=== PATIENT | male | born 1975 | race Two or more races ===

== ENCOUNTER 2017-10-10 01:02 | Emergency (ER) | payer OTHER ==
[~2017-10-10] VITALS: Ht 160 cm; Wt 66.4 kg
[2017-10-10 01:18] VITALS: BP 126/73
[2017-10-10] MEDS ORDERED: IBUPROFEN 200 MG TABLET ONE (01:22)
[2017-10-10] MEDS ORDERED: IBUPROFEN 200 MG TABLET PO ONE (01:30)
== END 2017-10-10 01:34 | disposition home or self-care (01) ==
LOC: ED 01:31
DX: G44.219 Episodic tension-type headache, not intractable (principal); F43.0 Acute stress reaction
CPT/HCPCS: 93005; 99283